=== PATIENT | female | born 1965 | race Caucasian/White ===

== ENCOUNTER 2017-06-09 13:21 | Emergency (ER) | payer SELFPAY ==
[~2017-06-09] VITALS: Ht 170.2 cm; Wt 74.0 kg
[2017-06-09 13:25] VITALS: BP 151/93; PULSE 95; RESP 16; TEMP 98.2; O2SAT 96
--- NOTE | 2017-06-09 14:12 | PD ---
HPI Chief Complaint: Skin Problem Time Seen by Provider: 13:52 Travel History International Travel<30 days: No Contact w/Intl Traveler<30days: No Traveled to known affect area: No History of Present Illness HPI Patient comes in with a painful burning rash left posterior knee that began last night around 6:30 in the evening. Patient denies anything making symptoms better or worse. Pain radiates proximally. Denies anything like this in the past. Denies being around anyone else with similar. Denies any fevers or weight loss. PFSH Past Medical History Diminished Hearing: No Kidney Stones: Yes Musculoskeletal: Yes (BACK PAIN) Immunizations Current: No Tetanus Vaccination: < 5 Years Influenza Vaccination: Yes ?: Not Menopausal: Yes : 4 Para: 2 Miscarriage: 1 : 1 Tubal Ligation: Yes Past Surgical History Abdominal Surgery: No Gynecologic Surgery: Yes (TUBAL) Social History Alcohol Use: Yes (3-4 BEERS WEEKENDS) Tobacco Use: No Substance Use: No Allergies-Medications (Allergen,Severity, Reaction): Coded Allergies: No Known Allergies (Verified Adverse Reaction, Unknown, 06/09/17) Reported Meds & Prescriptions Reported Meds & Active Scripts Active Acyclovir 800 Mg Tab 800 Mg PO 5 TIMES A DAY 10 Days Review of Systems Except as stated in HPI: all other systems reviewed are Neg Physical Exam Narrative GENERAL: Well-developed, well nourished, in no acute distress, and non-ill appearing. SKIN: Vesicular lesions noted left posterior knee lateral aspect. There is erythematous. No crepitus. No drainage. No induration. Rash consistent with shingles over dermatome S2. HEAD: Atraumatic. Normocephalic. EYES: Pupils equal and round. EOMI. No scleral icterus. No injection or drainage. ENT: No nasal bleeding or discharge. Mucous membranes pink and moist. NECK: Trachea midline. Supple. No nuclear rigidity. RESPIRATORY: No accessory muscle use. No respiratory distress. MUSCULOSKELETAL: No obvious deformities. No clubbing. No cyanosis. No edema. Full range of motion. NEUROLOGICAL: Awake and alert. No obvious cranial nerve deficits. Motor grossly within normal limits. Normal speech. PSYCHIATRIC: Appropriate mood and affect; insight and judgment normal. Data Data Last Documented VS Vital Signs Date Time Temp Pulse Resp B/P (MAP) Pulse Ox O2 Delivery O2 Flow Rate FiO2 06/09/17 13:25 98.2 95 16 151/93 (112) 96 Orders Orders Ed Discharge Order (06/09/17 14:14) MDM Medical Decision Making Medical Screen Exam Complete: Yes Emergency Medical Condition: Yes Differential Diagnosis Abscess, cellulitis, shingles, poison jordan, poison oak Narrative Course Patient in no obvious distress upon re-evaluation. Discussed patient with Dr. San prior to discharge, who came and saw and evaluated the patient and is in agreement with plan of care and disposition. Any questions/concerns in reference to patient diagnosis/condition discussed and clarified prior to patient's discharge. Reinforced sheer importance of close follow up with patient 's primary physician or primary care clinic. Instructed patient to return to ED immediately, if symptoms return/worsen. Patient showed understanding of above instructions. Further instructions and recommendations were detailed in discharge paperwork. Patient ambulated without difficulty out of ED at discharge. Diagnosis Primary Impression: Shingles Qualified Codes: B02.9 - Zoster without complications Referrals: [facility] Patient Instructions: General Instructions, Shingles (ED) Additional Instructions: Follow-up with your primary care physician in 3-5 days for reevaluation. Take all medication as prescribed. Use [id number] Tylenol and/or ibuprofen as needed for pain. Follow instructions on the packaging. Return to the emergency department if symptoms get worse. Med/Other Pt SpecificInfo: Prescription(s) given Scripts Acyclovir (Acyclovir) 800 Mg Tab 800 MG PO 5 TIMES A DAY for Mgmt Viral Infection for 10 Days, TAB 0 Refills Prov: Terrell Wang MD 06/09/17 Disposition: 01 DISCHARGE HOME Condition: Stable Carlos Wolf Jun 09, 2017 14:12
[2017-06-09] MEDS ORDERED: ACYC800T PO (14:13)
== END 2017-06-09 14:22 | disposition home or self-care (01) ==
LOC: PHED 13:21 → PHEFT 14:22
DX: B02.9 Zoster without complications (principal); Z87.442 Personal history of urinary calculi; Z87.39 Personal history of other diseases of the musculoskeletal system and connective tissue
CPT/HCPCS: 99283